=== PATIENT | male | born 1990 | race Caucasian/White ===

== ENCOUNTER 2023-11-12 13:14 | Outpatient (AMB) | payer OTHER, SELFPAY ==
--- NOTE | 2023-11-12 13:14 | MHC.OFFWIV ---
Intake Vital Signs 11/12/23 13:15 Height 6 ft 1 in Weight 230 lb BMI 30.3 BP 120/80 Blood Pressure Location Lt brachial Position Sitting Pulse 104 H Pulse Source Pulse Oximeter Temp 97.9 F Temp Source Temporal Artery Scan Pulse Oximetry (%) 96 Oxygen Delivery Method Room Air Intake Visit Reasons: [employer]IAN sinus pain Intake Note: pt is here today sinus pain started 1 month ago Patient Tobacco Use Status: Never used Tobacco Allergies No Known Allergies Allergy (Verified 11/12/23 13:17) Do you need a note to return to daycare/school/sports/work: No HPI HPI Comments History of Present Illness Details 32 y/o male patient who presents to walk in clinic with c/o foul smell from nose x 1 month. Pt reports around 3 months ago, he lost sense of smell, not clear if the cause was viral or bacterial. Reports everytime he takes a breath, he smells a foul smell coming from his nose. He was seen by his PCP, who prescribed Anti-histamine (Oral/nasal spray). Pt reports minimal improvement. He was referred to ENT by PCP, but appointment is in May and he does not want to wait that long. Pt asking for Xray or CT-Scan. Denies any other URI symptoms. PFSH Social History Patient Tobacco Use Status: Never used Tobacco Review of Systems Const All systems reviewed & are unremarkable except as noted in HPI and below Physical Exam Vital Signs: Last Vital Signs Temp 97.9 F 11/12/23 13:15 Pulse 104 H 11/12/23 13:15 BP 120/80 11/12/23 13:15 Pulse Ox 96 11/12/23 13:15 Oxygen Delivery Method Room Air 11/12/23 13:15 BMI result Body Mass Index 30.3 HEENT Head: Yes normocephalic Ears: external ears normal and TM's normal bilaterally General nose exam: Normal external nose present, No nasal polyps present, No nasal discharge present, Abnormal mucous membranes and turbinates present boggy and erythematous and no epistaxis Face and sinus: Yes sinuses nontender Mouth: moist mucous membranes Throat: Yes posterior oropharynx normal Assessment & Plan Assessment & Plan (1) Disorder of olfactory system: Code(s): J34.9 - Unspecified disorder of nose and nasal sinuses Plan: - F/U with PCP for ENT referral - He might need CT-Scan. Coding Level of Care Code New Pt Level 3 (44196) Diagnoses Disorder of olfactory system J34.9 Time Spent (min) 15
[2023-11-12 13:15] VITALS: BP 120/80; PULSE 104; TEMP 36.6; O2SAT 96; BMI 30.3
== END 2023-11-12 14:07 | disposition home or self-care (01) ==
PROVIDERS: PCP Internal Medicine; Visit Provider Nurse Practitioner Family
DX: J34.9 Unspecified disorder of nose and nasal sinuses (principal)
CPT/HCPCS: 99203